=== PATIENT | male | born 1995 ===

== ENCOUNTER 2018-11-23 10:14 | Day surgery (SDC) | payer BC ==
[2018-10-19 09:31] LABS: ABSOLUTE EOSINOPHILS # (AUTO) 0.1 10^3/uL (0.0-0.6); ABSOLUTE LYMPHOCYTES (AUTO) 2.2 10^3/uL (0.5-4.7); ABSOLUTE MONOCYTES (AUTO) 0.5 10^3/uL (0.1-1.4); ABSOLUTE NEUT (AUTO) 2.4 10^3/uL (1.7-8.2); BASOPHILS % (AUTO) 0.7 % (0-2); EOSINOPHILS % (AUTO) 2.8 % (0-6); HEMATOCRIT 49.8 % (37.9-51.0); HEMOGLOBIN 17.2 g/dL (13.5-17.0); LYMPHOCYTES % (AUTO) 41.5 % (13-45); MEAN CORPUSCULAR HEMOGLOBIN 28.6 pg (27.0-33.4); MEAN CORPUSCULAR HGB CONC 34.6 g/dL (32.0-36.0); MEAN CORPUSCULAR VOLUME 83 fl (80-97); MONOCYTES % (AUTO) 8.8 % (3-13); PLATELET COUNT 284 10^3/uL (150-450); RED BLOOD COUNT 6.03 10^6/uL (4.35-5.55); SEGMENTED NEUTROPHILS % (AUTO) 46.2 % (42-78); TOTAL CELLS COUNTED % (AUTO) 100 %; WHITE BLOOD COUNT 5.3 10^3/uL (4.0-10.5)
[2018-10-19 09:49] LABS: ANION GAP 12 (5-19); BLOOD UREA NITROGEN 13 mg/dL (7-20); CALCIUM 9.8 mg/dL (8.4-10.2); CARBON DIOXIDE 27 mmol/L (22-30); CHLORIDE 103 mmol/L (98-107); GLUCOSE 99 mg/dL (75-110); POTASSIUM 4.7 mmol/L (3.6-5.0)
[~2018-11-23 10:14] MED LIST: CEFAZOLIN 2 GM/D5W RTU 2 GM/50 ML RTUPB IV ONE; CEFAZOLIN 2 GM/D5W RTU 2 GM/50 ML RTUPB IV PRN; DEXAMETHASONE SOD PHOSPHATE INJ 4 MG/1 ML VIAL ONE; FENTANYL CITRATE INJ/PF 100 MCG/2 ML AMPUL ONE; FENTANYL CITRATE INJ/PF 250 MCG/5 ML AMPULE ONE; LACTATED RINGERS 1000 ML IV PRN; LIDOCAINE 0.5% INJ-PF (5 MG/ML) 50 ML SDV SUBCUT PRN; MIDAZOLAM 2 MG/2 ML INJ ONE; ONDANSETRON HCL INJ/PF 4 MG/2 ML SDV ONE; PROPOFOL INJ 200 MG/20 ML VIAL IV ONE
[2018-11-23] MEDS ORDERED: KETOROLAC TROMETHAMINE 60 MG/2 ML SDV ONE (11:36)
[2018-11-23] MEDS ORDERED: SUCCINYLCHOLINE CHLORIDE INJ 200 MG/10 ML VIAL ONE (11:36)
[2018-11-23] MEDS ORDERED: BUPIVACAINE HCL 0.5 % INJ/PF 30 ML SDV ONE (12:06)
[2018-11-23] MEDS ORDERED: ONDANSETRON HCL INJ/PF 4 MG/2 ML SDV IV PRN ×2 (12:31→15:51)
[2018-11-23] MEDS ORDERED: FENTANYL CITRATE INJ/PF 100 MCG/2 ML AMPUL IV PRN ×3 (12:31)
[2018-11-23] MEDS ORDERED: MORPHINE SULFATE 10 MG/ML INJ IV PRN ×2 (12:31→15:51)
[2018-11-23] MEDS ORDERED: MEPERIDINE HCL/PF INJ 25 MG/1 ML DISP.SYRIN IV PRN (12:31)
[2018-11-23] MEDS ORDERED: DIPHENHYDRAMINE HCL 50 MG/ML VIAL IV PRN (12:31)
[2018-11-23] MEDS ORDERED: PROMETHAZINE HCL INJ 25 MG/1 ML VIAL IV PRN ×2 (12:31)
[2018-11-23] MEDS: FENTANYL CITRATE INJ/PF 100 MCG/2 ML AMPUL ONE ×2 (15:20→15:26)
[2018-11-23] MEDS: HYDROMORPHONE HCL INJ/PF 2 MG/ML AMPULE ONE ×2 (15:40→15:50)
[2018-11-23] MEDS ORDERED: OXYCODONE-ACETAMINOPHEN 5-325 MG TABLET PO PRN (15:51)
--- NOTE | 2018-11-23 15:51 | Operative Report ---
Operative Report DATE OF SURGERY: 11/23/18 PREOPERATIVE DIAGNOSIS: Left index finger flexor tendon laceration status post repair POSTOPERATIVE DIAGNOSIS: Left index flexor tendon adhesions, PIP joint contracture, marshall insufficiency, ulnar digital nerve laceration OPERATION: Left index finger flexor tenolysis. Proximal interphalangeal joint contracture release left index finger. Left index ulnar digital nerve repair with nerve allograft. Left index marshall reconstruction SURGEON: ADDIE RIZZO ANESTHESIA: GA COMPLICATIONS: None ESTIMATED BLOOD LOSS: Minimal PROCEDURE: Indication for above procedure: 23-year-old male who sustained a flexor tendon laceration in [place] and ultimately underwent flexor tendon repair 4 years ago but developed contracture and inability to make a fist along with persistent numbness. At that point we discussed treatment options including operative versus nonoperative intervention and postoperative expectations. After discussing treatment options decision was made to proceed with operative treatment. Procedure In Detail: Patient was seen and evaluated in the preoperative holding area. The upper extremity was initialized and marked. Patient received 2g of Ancef IV for bacterial prophylaxis. Patient was taken back to the operative room where transferred to the operative table and placed under general anesthesia. Once they were adequately anesthetized a nonsterile tourniquet was placed on the upper extremity. A surgical team debriefing was performed ensuring all instrumentation was available, the surgical procedure was discussed with possible concerns reviewed. The upper extremity was prepped with chlorhexidine and alcohol and draped in a sterile fashion. A timeout was done identifying correct patient, procedure and extremity everyone in attendance agree with this and verbalized no concerns. The extremity was exsanguinated the tourniquet was inflated to 250 mmHg. Previous Gianfranco skin incision was utilized. Blunt dissection and meticulous dissection was performed. Proximally the radial and ulnar digital nerves were isolated and followed distally. Neuro lysis of the radial digital nerve was performed freeing it from underlying scar tissue there is no evidence of discontinuity. Scar tissue over the flexor tendon was then carefully excised the FDP tendon remained intact and repaired however there was complete disruption of the FDS tendon with scarring to the volar surface of the metacarpal and proximal phalanx. The FDS was tenolysis and freed from the under lying scar tissue and allowed to retract for later marshall repair/reconstruction. The insertion at the middle phalanx was excised. The proximal interphalangeal joint was released including volar plate at the checkrein ligaments were released to achieve full passive extension of the PIP joint however there was mild subluxation with any hyperextension due to chronicity of contracture. Full passive flexion of the DIP joint was also achieved. Approximately 75% of the A4 marshall remained intact however there was complete loss of the A2 marshall. Neuro lysis of the ulnar neurovascular bundle was then performed there was complete disruption of the ulnar digital nerve with scarring into the adjacent adhesion/scar mass. The nerve was neurolysed proximally and distally until adequately freed from surrounding soft tissues. The nerve was debrided proximally and distally until normal-appearing fascicles were identified. Once the neurovascular bundles were adequately identified and protected the FDP tendon was tenolysis up to its insertion point into the distal phalanx with special attention to avoid injury or disruption of the A4 marshall. With a tenolysis knife it was further freed proximally from any remaining scar tissue. Additional skin incision was made volarly just ulnar to the palmaris longus. Blunt dissection was performed median nerve identified and retracted. The FDS tendon was shuttled out of the volar incision. The FDP tendon was then tensioned which demonstrate significant bowstringing and inability to make full flexion of the index finger indicating need for marshall reconstruction. The FDS tendon was then resected. Blunt dissection was performed dorsally along the index at the proximal phalanx while maintaining the insertion of the marshall rim to allow anchor point for the marshall reconstruction. The FDS tendon was then looped around the proximal phalanx dorsal to the extensor tendon. 3 loops were placed around the proximal phalanx while maintaining tension the marshall reconstruction was provisionally fixated. Traction was placed to the FDP tendon to ensure adequate pull-through and tension. Once this was confirmed and patient was able to have full flexion of the index finger the FDS graft was secured with horizontal mattress 4-0 FiberWire suture to the marshall rim and to the adjacent loop to provide further fixation. Once again traction was placed to the flexor tendon to ensure adequate tension. The ulnar digital nerve was placed on a background. Decision was made to place a nerve allograft prior to nerve allograft verbal consent was obtained from patient's father and friend (Sixto Lovelace and Ezekiel Lovelacehter) who confirmed there was no orthodoxy contraindications to nerve allograft. Digital nerve was repaired with interrupted 9-0 nylon suture and reinforced with fibrin glue. Once fibrin glue adequately set passive range of motion of the digit was performed to ensure no evidence of kinking or compression. Tensionless repair was completed. Tourniquet was deflated. Any peripheral bleeding was controlled with bipolar cautery until the wound was dry. 20 cc of 0.5% bupivacaine was injected for postoperative pain control. Patient had normal capillary refill, skin turgor and peripheral perfusion. Skin was closed with interrupted 4-0 and 3-0 nylon suture. Patient was placed in a dorsal blocking splint maintaining the intrinsi c plus position. Sponge counts, instrument counts, were correct however needle counts were incorrect during the closure the 9-0 nylon suture was lost on the back table but given the small nature of the needle and unlikelihood it was within the joint along with the fact it would not be identifiable with x-ray, decision was made to not expose the patient to additional radiation and unneeded risk. Patient was then awoken from anesthesia. Transferred from the operating room table to the operating room stretcher. There was no intraoperative complications patient tolerated procedure well stable to PACU.
--- NOTE | 2018-11-23 15:54 | Discharge Summary ---
Discharge Summary (SDC) - Discharge Final Diagnosis: Left index flexor tendon adhesions, PIP joint contracture, marshall insufficiency, ulnar digital nerve laceration Date of Surgery: 11/23/18 Discharge Date: 11/23/18 Condition: Good Treatment or Instructions: Schedule Follow Up w/ Dr. Raimundo Bullard @ [facility] to be seen in 10-14 days or as scheduled [place]: [place]: [place]: Begin occupational therapy at [facility] tomorrow 11/24/2018 at 11 AM Ice and elevate Keep splint clean/dry/intact, do not remove. If your fingers become numb please unwrap the Brian wrap but leave the splint in place, if the sensation does not return within 30 minutes please return to the emergency department. May begin finger range of motion attempting to make full fist. Please use ibuprofen (Motrin or Advil) 600-800 mg every 8 hours as needed for pain or fever DO NOT TAKE w/ TORADOL may use once TORADOL complete. You may also use acetaminophen (Tylenol) 1000 mg every 4-6 hours as needed for pain or fever. Please be aware that many medications contain acetaminophen, do not exceed a total of 1000 mg of acetaminophen every 6 hours. If ibuprofen and acetaminophen are not sufficient for your pain you may take the Percocet/[place]. Please be aware that the Percocet/[place] does contain Tylenol. Stool softener of choice when on pain medication. USE OF [id number] IBUPROFEN: Ibuprofen (Advil, Nuprin, Medipren, Motrin IB) is a medication for fever and pain control. In addition, it has anti- inflammatory effects which may be beneficial, especially in the treatment of injuries. It's best to take ibuprofen with food. Persons with ulcer disease or allergy to aspirin should notify their physician of this before taking ibup rofen. Ibuprofen can be given every four to six hours, for a total of four doses daily. Age Pain or fever dose Antiinflammatory dose 6-8 yr 200 mg (1 tab) 200 mg (1 tab) 9-11 yr 200 mg (1 tab) 200-400 mg (1-2 tab) 11-14 yr 200-400 mg (1-2 tab) 400 mg (2 tab) 15-adult 400 mg (2 tab) 600 mg (3 tab) ORAL NARCOTIC MEDICATION: You have been given a prescription for pain control. This medication is a narcotic. It's best taken with food, as nausea can result if taken on an empty stomach. Don't operate machinery or drive within six hours of taking this medication. Do not combine this medicine with alcohol, or with any medication which can cause sedation (such as cold tablets or sleeping pills) unless you get permission from the physician. Narcotics tend to cause constipation. If possible, drink plenty of fluids and eat a diet high in fiber and fruits. Please be aware that prescription narcotics also have the potential for abuse. People become addicted to these medications because of the general sense of wellbeing that they induce. This feeling along with a significant reduction in tension, anxiety, and aggression provides a stimulating seductive quality to these drugs. Once your pain is under control, we encourage you to discard your unused narcotics. Prescriptions: Methylprednisolone [Medrol Dosepack (4 mg/Tab) 21 Tab/Dosepak] 4 mg PO ASDIR PRN #21 tab.[id number] PRN Reason: Oxycodone HCl/Acetaminophen [Percocet 5-325 mg Tablet] 1 tab PO Q6 PRN #25 tab PRN Reason: Referrals: TALIA PATTON PA-C [Primary Care Provider] - Respiratory Treatments at Home: Deep Breathing/Coughing Discharge Activity: No Lifting Over 10 Pounds, No Lifting/Push/Pulling Report the Following to Your Physician Immediately: Fever over 101 Degrees, Unusual Bleeding, Redness, Swelling, Warmth, Increased Soreness
[2018-11-23] MEDS ORDERED: OXYCODONE-ACETAMINOPHEN 5-325 MG TABLET ONE (16:44)
[2018-11-23 18:37] VITALS: BP 137/73
== END 2018-11-23 18:10 | disposition home or self-care (01) ==
LOC: OROUT 10:14
PROVIDERS: ATTEND Orthopaedic Surgery
DX: M24.542 Contracture, left hand (principal); M65.842 Other synovitis and tenosynovitis, left hand; S66.120S Laceration of flexor muscle, fascia and tendon of right index finger at wrist and hand level, sequela; X58.XXXS Exposure to other specified factors, sequela; S64.02XA Injury of ulnar nerve at wrist and hand level of left arm, initial encounter; X58.XXXA Exposure to other specified factors, initial encounter; F17.210 Nicotine dependence, cigarettes, uncomplicated
CPT/HCPCS: 36415; 85025; 80048; 01810; 26440; 26525; 64912; 26502; C9250; C1769; J2250; J3490; J1100; J1885; J3010 ×2; J1170; J0330; J2405; J2704; J0690; 1810